=== PATIENT | male | born 1980 | race Hispanic/Latino ===

== ENCOUNTER 2016-07-21 13:53 | Emergency (ER) | payer OTHER ==
[~2016-07-21] VITALS: Ht 180.3 cm; Wt 120.2 kg
[~2016-07-21 13:53] MED LIST: MOTRIN800 MG PO; PERCOCET 325 MG1 TA2 PO
[2016-07-21 14:02] VITALS: BP 120/84
[2016-07-21] MEDS ORDERED: IBUPROFEN800 M1 PO (14:16)
[2016-07-21] MEDS ORDERED: AMOXICILLIN875 M1 PO (14:16)
--- NOTE | 2016-07-21 14:17 | ED THROAT/DENTAL COMPLAINT ---
History of Present Illness General Chief Complaint: Sore Throat, Dental Pain Stated Complaint: TOOTH PAIN Source: patient Exam Limitations: no limitations Vital Signs & Intake/Output Vital Signs & Intake/Output Vital Signs Date Time Temp Pulse Resp B/P Pulse O2 O2 Flow FiO2 Ox Delivery Rate 07/21 1424 99 07/21 1402 97.0 98 20 120/84 99 Room Air Allergies Coded Allergies: NO KNOWN ALLERGIES (09/21/10) Reconcile Medications Amoxicillin 875 MG TABLET 1 TAB PO BID ental infection Ibuprofen (Motrin) 800 MG TAB 1 TAB PO TID PRN PAIN Ibuprofen 800 MG TABLET 1 TAB PO TID pain OXYCODONE HCL/ACETAMINOPHEN (Percocet 5-325 MG Tablet) 325 MG/5 MG TAB 1-2 TAB PO Q4-6 PRN PRN PAIN Triage Note: PT C/O DENTAL PAIN X 1 DAY. DENIES RECENT DENTAL WORK. PT STATES CRACKED TOOTH A COUPLE MONTHS AGO Triage Nurses Notes Reviewed? yes Onset: Abrupt Duration: day(s): (few), constant, continues in ED Timing: recent history Injury Environment: home No Modifying Factors: none HPI: 36-year-old male comes into emergency room for further evaluation of right lower dental pain is been going on for the past couple days as well as swelling. Patient has a cracked tooth in that area. sharp Pain. Patient reports that he's been taking ibuprofen and that helps with the pain but is continuing to swell. Denies any fever or chills. Denies any vomiting. Denies any flulike symptoms. Denies any other associated symptoms. Past History Travel History Traveled to [place] past 21 day No Medical History Any Pertinent Medical History? see below for history Respiratory: asthma Surgical History Surgical History: non-contributory Psychosocial History What is your primary language Occitan Tobacco Use: Current Daily Use Daily Tobacco Use Amount/Type: => 5 Cigarettes daily ETOH Use: occasional use Illicit Drug Use: denies illicit drug use Family History Hx Contributory? No Review of Systems Review of Systems Constitutional: Reports: no symptoms. EENTM: Reports: see HPI. Respiratory: Reports: no symptoms. Cardiovascular: Reports: no symptoms. GI: Reports: no symptoms. Genitourinary: Reports: no symptoms. Musculoskeletal: Reports: no symptoms. Skin: Reports: no symptoms. Neurological/Psychological: Reports: no symptoms. Hematologic/Endocrine: Reports: no symptoms. Immunologic/Allergic: Reports: no symptoms. All Other Systems: Reviewed and Negative Physical Exam Physical Exam General Appearance: well developed/nourished, alert, awake Head: atraumatic, normal appearance Eyes: Bilateral: normal appearance, EOMI. Nose: normal inspection Mouth/Throat: dental tenderness, poor dentition, cracked tooth right lower, Neck: normal inspection, full range of motion, trachea midline Cardiovascular/Respiratory: regular rate/rhythm, no respiratory distress Back: normal inspection Neurologic/Psych: awake, alert, oriented x 3, normal gait Skin: intact, normal color Core Measures ACS in differential dx? No Severe Sepsis Present: No Septic Shock Present: No Progress Differential Diagnosis: aspirated tooth, carious tooth, epiglottitis, Ludwigs angina, meningitis, odontogenic abscess, rachell-tonsillar abscess, pharyngeal for. body, stomatitis/gingivitis, strep pharyngitis, tooth fracture Plan of Care: 07/21/2016 3:16:05 PM Patient clinically looks well. Nontoxic-appearing. No abscess appreciated. Started on amoxicillin. Referred to his dentist. Return if any other concerns. Departure Departure Disposition: HOME OR SELF CARE Condition: Stable Clinical Impression Primary Impression: Dental infection Referrals: PATIENT HAS NO PRIMARY CARE DR (PCP/Family) Additional Instructions: Take amoxicillin ibuprofen as prescribed. Follow-up with dentist. Return if any concerns worsening symptoms. Please go over all results of today's visit with your primary care doctor. Contact your primary care doctor to let them know you were here in the emergency room. There may be nonspecific findings which may not be related to your visit today here in the emergency room but may require further evaluation and chronic monitoring by your primary care doctor. If you had a laceration today the chance of foreign body always remains. You should follow-up with your primary care doctor for recheck in 3-5 days for a wound check. If you had an x-ray done there is a chance that a fracture could have been missed on initial read and you should follow-up with your primary care doctor for repeat x-rays if symptoms persist. If your blood pressure was elevated here in the emergency room please have rechecked by her primary care doctor within the next 48 hours by your primary care doctor. If you were prescribed a narcotic here in the emergency room or any type of controlled substances you're not allowed to drive while taking this medication or operate any type of heavy machinery. Narcotics can make you feel lightheaded dizziness nausea and can cause constipation. You may need to pick up driver a stool softener. Thank you for choosing [facility] emergency room. Please return to the emergency room immediately if you have any other concerns worsening of symptoms. Departure Forms: Customer Survey General Discharge Information Prescriptions: Current Visit Scripts Amoxicillin 1 TAB PO BID #20 TAB Ibuprofen 1 TAB PO TID #30 TAB
== END 2016-07-21 14:15 ==
LOC: ERH 13:53
DX: K04.7 Periapical abscess without sinus (principal)